=== PATIENT | female | born 1995 | race American Indian/Alaskan Native ===

== ENCOUNTER 2020-08-17 18:40 | Emergency (ER) | payer SELFPAY ==
[2020-08-17] MEDS ORDERED: CYCLOBENZAPRINE 10 MG TAB PO ONE (18:59)
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
[2020-08-17 19:03] VITALS: BP 107/69
== END 2020-08-17 21:13 | disposition home or self-care (01) ==
LOC: ED 18:40
DX: M54.5 Low back pain (principal); F17.200 Nicotine dependence, unspecified, uncomplicated; F12.10 Cannabis abuse, uncomplicated; Z79.899 Other long term (current) drug therapy; V49.49XA Driver injured in collision with other motor vehicles in traffic accident, initial encounter; Y93.89 Activity, other specified; Y92.488 Other paved roadways as the place of occurrence of the external cause; Y99.8 Other external cause status
CPT/HCPCS: 99283